=== PATIENT | male | born 1955 | race Caucasian/White ===

== ENCOUNTER 2025-07-01 23:45 | Emergency (ER) | payer MEDICARE, OTHER, SELFPAY ==
[2025-07-01 23:57] VITALS: BP 140/93
[2025-07-02 00:03] VITALS: BP 140/93
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
[2025-07-02 01:56] VITALS: BP 128/79
== END 2025-07-02 01:57 | disposition home or self-care (01) ==
LOC: EMR 23:45
PROVIDERS: EMERGENCY PHYSICIAN Student in an Organized Health Care Education/Training Program; FAMILY PHYSICIAN Family Medicine
DX: T59.811A Toxic effect of smoke, accidental (unintentional), initial encounter (principal); X08.8XXA Exposure to other specified smoke, fire and flames, initial encounter; Z87.891 Personal history of nicotine dependence
CPT/HCPCS: 99283; 71046